=== PATIENT | female | born 1995 | race Caucasian/White ===

== ENCOUNTER 2017-02-23 03:19 | Observation (INO) | payer OTHER ==
[2017-02-23] MEDS ORDERED: TORAdol 30 mg Injection IV ONE (03:39)
[2017-02-23] MEDS ORDERED: Zofran 4 MG/2 ML VIAL IV ONE ×2 (03:39→16:56)
[2017-02-23] MEDS ORDERED: Pepcid 20 MG VIAL IV ONE ×2 (03:41→03:48)
--- NOTE | 2017-02-23 03:46 | ERPHSYRPT ---
- History of Present Illness Time Seen by Provider: 02/23/17 03:30 Historian: patient Exam Limitations: no limitations Patient Subjective Stated Complaint: pt C/O abd pain x 6 days with vomiting. Denies diarrhea. Hx of gallstone which she did not want to have surgery for. Pt tried herbal remedies at home. Pt ate greasy food last sunday which started this episode. Has been eating but unable to keep food down. Vomiting 2-3 times per day. Able to fluids down. Twisting pain that radiates into chest and makes her feel like she is going to vomit. Rates pain 10/10. Pt sts sometimes she has noticed bright red blood in vomit. C/O ABD bloating. Last BM either sunday or sunday. Triage Nursing Assessment: Pt alert, oriented, answers all questions appropriately. Skin pale, warm, dry. Resps non-labored. Pt ambulatory to tx room , steady gait noted. Pt appears uncomfortable. Diffusely tender abd, + bowel sounds, left CVA tenderness. Physician History: Pt has been c/o recurrent RUQ abdominal pain for about one year. She had CT abdomen few months ago, diagnosed with gallstones, did not have Ultrasound. She states, the pain started about 6 days ago, radiates to her back, vomited once tonight, denies fever, chills, diarrhea, vomiting blood or coffee ground material. Timing/Duration: day(s) (6) Activities at Onset: none Quality: cramping Abdominal Pain Onset Location: RUQ Pain Radiation: back Severity of Pain-Max: severe Severity of Pain-Current: severe Modifying Factors: Improves With: nothing Associated Symptoms: nausea, vomiting Previous symptoms: same symptoms as today, other (recurrent pain for one year,) Allergies/Adverse Reactions: No Known Drug Allergies Allergy (Unverified 02/23/17 03:36) Home Medications: Hydrocodone/Acetaminophen [Hydrocodone-Acetamin 5-325 mg] 1 each PO Q6H [History] Norgestimate-Ethinyl Estradiol [Tri-Estarylla] 1 each PO DAILY 02/23/17 [History ] Promethazine HCl 0 mg PO Q6HPRN PRN 02/23/17 [History] Immunizations Up to Date: Yes - Review of Systems Constitutional: No Symptoms Abdominal/Gastrointestinal: Abdominal Pain, Nausea, Vomiting All Other Systems: Reviewed and Negative - Past Medical History Pertinent Past Medical History: Yes Other Medical History: pre-diabetes, gallstones - Past Surgical History Past Surgical History: No - Social History Smoking Status: Never smoker Exposure to second hand smoke: No Drug Use: none Patient Lives Alone: No - Female History Hx Last Menstrual Period: 02/05/17 Hx Now: No - Nursing Vital Signs Nursing Vital Signs: Initial Vital Signs Temperature 97.3 F 02/23/17 03:23 Pulse Rate 80 02/23/17 03:23 Respiratory Rate 16 02/23/17 03:23 Blood Pressure 150/80 02/23/17 03:23 O2 Sat by Pulse Oximetry 99 02/23/17 03:23 Pain Scale Pain Intensity 3 - Physical Exam General Appearance: no apparent distress Eye Exam: eyes nml inspection Ears, Nose, Throat Exam: normal ENT inspection Neck Exam: normal inspection, non-tender Respiratory Exam: normal breath sounds, chest tenderness, lungs clear Cardiovascular Exam: regular rate/rhythm, normal heart sounds, normal peripheral pulses, No murmur Gastrointestinal/Abdomen Exam: soft, normal bowel sounds, tenderness (diffuse, more severe in RUQ, no flank tenderness.), No distention, No mass, No guarding, No hernia, No organomegaly Back Exam: normal inspection, No CVA tenderness Extremity Exam: normal inspection Neurologic Exam: alert, oriented x 3, cooperative, normal mood/affect Skin Exam: normal color, warm, dry Lymphatic Exam: No adenopathy SpO2: 99 Oxygen Delivery: Room Air - CT Exams Abdomen/Pelvis CT Interpretation: Other (noncalcified gallstones/sludge, gallbladder distension with mild wall edema, may represent acute cholecistitis) Ordered Tests: Active Orders 24 hr Category Date Time Status IV Insertion STAT Care 02/23/17 03:39 Active NPO (ED) STAT Care 02/23/17 03:39 Active ABDOMEN AND PELVIS W CONTRAST [CT] Stat Exams 02/23/17 03:39 Taken AMYLASE Stat Lab 02/23/17 03:45 Completed CBC W DIFF Stat Lab 02/23/17 03:45 Completed CMP Stat Lab 02/23/17 03:45 Completed HCG,QUALITATIVE URINE Stat Lab 02/23/17 03:45 Completed LIPASE Stat Lab 02/23/17 03:45 Completed Lactic Acid Stat Lab 02/23/17 03:39 Completed Medication Summary Discontinued Medications Generic Name Dose Route Start Last Admin Trade Name Nitin PRN Reason Stop Dose Admin Famotidine 20 mg 02/23/17 03:41 02/23/17 03:51 Pepcid 20 Mg Vial IV 02/23/17 03:42 20 mg STAT ONE Administration Famotidine Confirm 02/23/17 03:48 Pepcid 20 Mg Vial Administered 02/23/17 03:49 Dose 20 mg IV .STK-MED ONE Piperacillin Sod/Tazobactam Sod 3.375 gm in 100 mls @ 200 mls/hr 02/23/17 05: 18 02/23/17 05:34 Zosyn 3.375gm/100 Ml D5w IV 02/23/17 05:47 200 mls/hr STAT STA Administration Piperacillin Sod/Tazobactam Sod Confirm 02/23/17 05:29 Zosyn 3.375gm/100 Ml D5w Administered 02/23/17 05:30 Dose 3.375 gm in 100 mls @ ud IV .STK-MED ONE Ketorolac Tromethamine 30 mg 02/23/17 03:39 02/23/17 03:52 Toradol 30 Mg Injection IV 02/23/17 03:40 30 mg STAT ONE Administration Ketorolac Tromethamine Confirm 02/23/17 03:48 Toradol 30 Mg Injection Administered 02/23/17 03:49 Dose 30 mg .ROUTE .STK-MED ONE Ondansetron HCl 4 mg 02/23/17 03:39 02/23/17 03:52 Zofran 4 Mg/2 Ml Vial IV 02/23/17 03:40 4 mg STAT ONE Administration Ondansetron HCl Confirm 02/23/17 03:48 Zofran 4 Mg/2 Ml Vial Administered 02/23/17 03:49 Dose 4 mg .ROUTE .STK-MED ONE Lab/Rad Data: Laboratory Result Diagrams 02/23/17 03:45 02/23/17 03:45 Laboratory Results 02/23/17 02/23/17 02/23/17 Range/Units 03:45 03:45 03:45 WBC 7.5 (4.0-10.5) K/mm3 RBC 4.31 (4.1-5.4) M/mm3 Hgb 12.5 (12.0-16.0) gm/dl Hct 37.8 (35-47) % MCV 87.7 (78-100) fl MCH 29.0 (26-32) pg MCHC 33.1 (32-36) g/dl RDW 12.1 (11.5-14.0) % Plt Count 283 (150-450) K/mm3 MPV 9.8 H (6-9.5) fl Gran % 72.0 H (36.0-66.0) % Lymphocytes % 17.2 L (24.0-44.0) % Monocytes % 8.9 (0.0-12.0) % Eosinophils % 1.6 (0.00-5.0) % Basophils % 0.3 (0.0-0.4) % Basophils # 0.02 (0-0.4) Sodium 138 (136-145) mEq/L Potassium 3.7 (3.5-5.1) mEq/L Chloride 101 (98-107) mEq/L Carbon Dioxide 28.6 (21-32) mEq/L Anion Gap 11.7 (5-15) MEQ/L BUN 9 (9-20) mg/dL Creatinine 0.76 (0.55-1.30) mg/dl Estimated GFR > 60 ML/MIN Glucose 130 H (70-110) MG/DL Lactic Acid (0.4-2.0) Calcium 8.8 (8.5-10.1) mg/dL Total Bilirubin 0.60 (0.2-1.0) mg/dL AST 21 (15-37) U/L ALT 25 (12-78) U/L Alkaline Phosphatase 37 L (46-116) U/L Serum Total Protein 7.3 (6.4-8.2) gm/dL Albumin 3.9 (3.4-5.0) g/dL Amylase 71 (25-115) U/L Lipase 109 (73-393) U/L Urine HCG, Qual NEGATIVE (Negative) 02/23/17 Range/Units 03:39 WBC (4.0-10.5) K/mm3 RBC (4.1-5.4) M/mm3 Hgb (12.0-16.0) gm/dl Hct (35-47) % MCV (78-100) fl MCH (26-32) pg MCHC (32-36) g/dl RDW (11.5-14.0) % Plt Count (150-450) K/mm3 MPV (6-9.5) fl Gran % (36.0-66.0) % Lymphocytes % (24.0-44.0) % Monocytes % (0.0-12.0) % Eosinophils % (0.00-5.0) % Basophils % (0.0-0.4) % Basophils # (0-0.4) Sodium (136-145) mEq/L Potassium (3.5-5.1) mEq/L Chloride (98-107) mEq/L Carbon Dioxide (21-32) mEq/L Anion Gap (5-15) MEQ/L BUN (9-20) mg/dL Creatinine (0.55-1.30) mg/dl Estimated GFR ML/MIN Glucose (70-110) MG/DL Lactic Acid 0.9 (0.4-2.0) Calcium (8.5-10.1) mg/dL Total Bilirubin (0.2-1.0) mg/dL AST (15-37) U/L ALT (12-78) U/L Alkaline Phosphatase (46-116) U/L Serum Total Protein (6.4-8.2) gm/dL Albumin (3.4-5.0) g/dL Amylase (25-115) U/L Lipase (73-393) U/L Urine HCG, Qual (Negative) - Progress Progress: improved Progress Note: 02/23/17 06:20 Pt has remained afebrile, pain improved, she states, she feels much better. I called Dr Jaciel Coburn, discussed our results, he agreed to see her today. I also called Dr Yoli Lin, discussed the results and patients current condition, she agreed to admit patient to medical surgical bed. Pt and her informed , they agreed. 02/23/17 06:23 02/23/17 06:23 Discussed with : Rekha Taveras - Departure Time of Disposition: 06:23 Departure Disposition: In-patient Admission Clinical Impression: Acute cholecystitis due to biliary calculus Condition: Stable Critical Care Time: No Referrals: LORNA TEMPLE MD [Primary Care Provider] -
[2017-02-23] MEDS ORDERED: TORAdol 30 mg Injection ONE (03:48)
[2017-02-23] MEDS ORDERED: Zofran 4 MG/2 ML VIAL ONE ×2 (03:48→15:59)
[2017-02-23 03:50] LABS: BASOPHIL % 0.3 % (0.0-0.4); Eosinophil % 1.6 % (0.00-5.0); Lymphocytes % 17.2 % (24.0-44.0); Mean Cell Volume 87.7 fl (78-100); Mean Platelet Volume 9.8 fl (6-9.5); Monocytes % 8.9 % (0.0-12.0); Platelet Count 283 K/mm3 (150-450); Red Blood Count 4.31 M/mm3 (4.1-5.4); Red Cell Distribution Width 12.1 % (11.5-14.0); White Blood Count 7.5 K/mm3 (4.0-10.5)
[2017-02-23 04:12] LABS: ALBUMIN 3.9 g/dL (3.4-5.0); ALKALINE PHOSPHATASE 37 U/L (46-116); ANION GAP 11.7 MEQ/L (5-15); BLOOD UREA NITROGEN 9 mg/dL (9-20); CHLORIDE 101 mEq/L (98-107); Carbon Dioxide 28.6 mEq/L (21-32); Glucose 130 MG/DL (70-110); LIPASE 109 U/L (73-393); Potassium 3.7 mEq/L (3.5-5.1); SGOT/AST 21 U/L (15-37); SGPT/ALT 25 U/L (12-78); SODIUM 138 mEq/L (136-145); Total Protein 7.3 gm/dL (6.4-8.2)
[2017-02-23] MEDS ORDERED: Zosyn 3.375GM/100 Ml D5W 3.375 GM/100 ML IVPB IV STA (05:18)
[2017-02-23] MEDS ORDERED: Zosyn 3.375GM/100 Ml D5W 3.375 GM/100 ML IVPB IV ONE (05:29)
[2017-02-23] MEDS ORDERED: Sodium Chloride 0.9% 1000 ML 1,000 ML IV SCH (07:12)
[2017-02-23] MEDS ORDERED: MEFOXIN 2 GM PREMIX** 2 GM/50 ML ML IV SCH (09:00)
[2017-02-23] MEDS: Lactated Ringers 1,000 ML IV SCH ×2 (09:15→22:55)
--- NOTE | 2017-02-23 09:28 | XRAY ---
Indication: Right upper quadrant pain and nausea. Multiple contiguous axial images obtained through the abdomen and pelvis using 80 cc Isovue 370 contrast only. Comparison: None. Lung bases demonstrate lingular calcified granuloma. No infiltrate or effusion. Heart is not enlarged. Noncontrasted stomach and bowel loops appear nonobstructed. Mild diffuse scattered colonic fecal debris greatest in the ascending and transverse colon. Normal appendix. Tiny cul-de-sac fluid presumed from rupture/leaking cyst. No walled off fluid collection or free air. Gallbladder is moderately distended with mild wall thickening. No radiopaque gallstones or abnormal biliary distention. Tiny hepatic/splenic calcified granulomas. 3 cm left renal parapelvic cyst. Remaining liver, pancreas, spleen, adrenal glands, kidneys, ureters, bladder, uterus, and aorta appear unremarkable. Small subcentimeter periaortic lymph nodes, none pathologically enlarged. Osseous structures intact. Impression: 1. Distended gallbladder with mild wall thickening. Cholecystitis is a primary concern. Gallbladder ultrasound may yield further information. 2. Fecal stasis without obstruction. 3. Tiny cul-de-sac fluid presumed from ruptured/leaking cyst. 4. Left renal cyst. Comment: Preliminary interpretation was made by C. No critical discrepancy. CT DI 20.69
[2017-02-23] MEDS: MORPHINE SULFATE 4 MG INJ IV PRN (10:28)
[2017-02-23] MEDS: Zofran 4 MG/2 ML VIAL IV PRN ×2 (10:28→20:48)
[2017-02-23] MEDS ORDERED: Zosyn 3.375GM/100 Ml D5W 3.375 GM/100 ML IVPB IV SCH (12:00)
[2017-02-23] MEDS ORDERED: Lactated Ringers 1,000 ML IV ONE (12:43)
[2017-02-23] MEDS ORDERED: Sensorcaine 0.25% 10 ML ONE (12:43)
--- NOTE | 2017-02-23 13:20 | XRAY ---
Indication: Right upper quadrant pain. Abnormal gallbladder on same-day CT. Two-dimensional right upper quadrant abdominal sonogram performed. Comparison: None Gallbladder normally distended with a few gallstones. Largest measures 2.1 cm in the neck of the gallbladder. Borderline gallbladder wall thickening measuring 3.1 mm. No pericholecystic fluid. Common bile duct measures 4.1 mm. No intrahepatic biliary distention. Pancreas not well seen due to overlying bowel gas. Remaining visualized liver and right kidney appear sonographically unremarkable. Right kidney measures 11.5 x 4.7 x 5.5 cm. No ascites. Impression: Gallstones, largest in the neck of the gallbladder with gallbladder wall thickening. Rule out cholecystitis. Pancreas not seen.
[2017-02-23] MEDS ORDERED: TYLENOL 325 MG PO PRN (16:49)
[2017-02-23] MEDS ORDERED: FEVERALL 650 MG RC PRN (16:49)
[2017-02-23] MEDS ORDERED: Zemuron 100 MG/10 ML IJ ONE (16:56)
[2017-02-23] MEDS ORDERED: TORAdol 30 mg Injection IJ ONE (16:56)
[2017-02-23] MEDS ORDERED: DIPRIVAN 200 MG/20 ML IV ONE (16:56)
[2017-02-23] MEDS ORDERED: Quelicin Fliptop 200 MG/10 ML IJ ONE (16:56)
[2017-02-23] MEDS ORDERED: BRIDION 200MG/2ML IV ONE (16:56)
[2017-02-23] MEDS ORDERED: Decadron 4 MG INJ IV ONE (16:56)
--- NOTE | 2017-02-23 17:05 | CONS ---
CONSULT DATE: 02/23/17 HISTORY OF PRESENT ILLNESS: This is a 21 y/o female who has been having on and off abdominal pain for the past year. She states on 11/22/16 she had a severe attack of similar pain in her right side. She went to [place]. She was found to have gallbladder disease. She did not want to have surgery at that time. She wanted to try conservative management and so she elected to not have surgery. She then had another attack approximately 1 week ago on Sunday and then over the past week, she has had intermittent N/V, significant pain. The pain is not going away. She continued to have pain today. She presented to the Emergency Room at [facility]. The patient states that she has also had some blood in her emesis. She says that she has had this since childhood. She would have a very small amount of spotty blood in her emesis. However, as this pain worsened with her gallbladder, she has noticed a little more blood in the emesis than before with some mucus. She also states that she has been taking at least 4 ibuprofen a day. She is taking a lot of extra strength Tylenol. She also is taking some hydrocodone which she had left over from November and she says she has taken all these medications without any significant improvement of her pain. PAST MEDICAL HISTORY: Prediabetic, scoliosis. PAST SURGICAL HISTORY: None. HOME MEDICATIONS: Herbal supplements, control, and recently she has been taking hydrocodone, ibuprofen, and Tylenol. ALLERGIES: NKDA. FAMILY HISTORY: No bleeding or anesthesia issues. Patient's family does report possible esophagus or stomach cancer in the family. SOCIAL HISTORY: Positive occasional alcohol use. No tobacco use. PHYSICAL EXAMINATION: GENERAL: No acute distress. ABDOMEN: Soft. Tender to palpation upper abdomen, more on the right. No rebound. No guarding. Definitely appears consistent with cholecystitis with the right upper quadrant pain. Patient is nondistended. PULMONARY: Nonlabored. CVS: Regular rate and rhythm. EXTREMITIES: Normal. LABORATORY DATA: Laboratory studies are reviewed including CBC, BMP, hepatic function panel, amylase, lipase, and test. The test is negative. Her liver function tests and bilirubin are normal. Her creatinine is normal. She does appear to have acute cholecystitis. She did get a CT scan and this showed concerns with possible acute cholecystitis with gallbladder thickening, a small amount of free fluid in the pelvis. She also incidentally has a left perirenal cyst and they recommended US. The US was urgently obtained. She does have thickening of the gallbladder on US. She does have a quite large stone which appears to be in the neck of the gallbladder causing the issue with gallbladder wall thickening and definitely concerns for acute cholecystitis. ASSESSMENT: This is a 21 y/o female with a couple of concerning issues: 1. SHE DOES HAVE ACUTE CHOLECYSTITIS. She is currently on IV antibiotics. She is NPO. She absolutely does need a cholecystectomy based on the increasing severity of her symptoms, her CT scan and US findings. I have discussed with her all the risks, benefits, and alternatives regarding laparoscopic/possible open cholecystectomy. She understands. She would like to proceed. We will plan for surgery today. 2. SHE DOES APPEAR TO HAVE SOME POSSIBLE ULCER DISEASE. She has been having some bleeding throughout her entire life when she vomits. However, recently, she has had a little more blood in her emesis and I think it is absolutely necessary that at some point once she has healed from her gallbladder issue, we do an EGD and I also have written her for Protonix so that after her surgery, she can start getting treated with proton pump inhibitor therapy. I discussed this with her as well as with her family and so after the gallbladder surgery, she will follow-up with me and then pending how her recovery goes for the gallbladder, we will plan to schedule an EGD as an outpatient once her acute gallbladder issue has resolved. 3. The third issue is the incidental renal cyst. This I discussed with the patient that we will leave up to her medical doctor to follow and should the medical doctor think that at some point she needs to see a urologist for this, they may do so. This appears to be benign. PLAN: Final plan is surgery today, possible endoscopy once patient has healed from surgery as an outpatient, and then she will also follow-up with her medical physician as well.
[2017-02-23] MEDS ORDERED: Versed 2 MG/2 ML Injection IV ONE (17:22)
[2017-02-23] MEDS ORDERED: SUBLIMAZE 250 MCG/5 ML IJ ONE (17:22)
[2017-02-23] MEDS: Protonix 40MG Tablet PO SCH (17:25)
[2017-02-23] MEDS: NORCO 5/325 MG PO PRN (17:25)
--- NOTE | 2017-02-23 17:25 | OP ---
SURGERY DATE: 02/23/17 SURGERY TIME: PREOPERATIVE DIAGNOSIS: 1. ACUTE CHOLECYSTITIS. POSTOPERATIVE DIAGNOSIS: 1. ACUTE CHOLECYSTITIS WITH CHOLELITHIASIS. PROCEDURE: 1. Laparoscopic cholecystectomy. SURGEON: Agnes Coburn M.D. ANESTHESIA: General. ESTIMATED BLOOD LOSS: Less than 10 cc. COMPLICATIONS: None. SPECIMENS: 1. Gallbladder. 2. Free pelvic peritoneal fluid sent for cytology and microbiology. PROCEDURE DETAILS: This is a 21 y/o female who presents with acute cholecystitis and cholelithiasis. All risks, benefits, and alternatives regarding laparoscopic/possible open cholecystectomy have been discussed with the patient. She understands, agrees, and would like to proceed with surgery today. She has been NPO. Please see my consultation note for the other incidental findings on CT scan which we will be following as an outpatient as well as with her gallbladder issues. The patient was then brought back to the surgical suite. Anesthesia was induced. She was prepped and draped in the usual sterile fashion. Complete time-out performed. An OG tube was inserted. The stomach was desufflated. An incision was made in the left upper quadrant. Veress needle was used to access the abdomen. We had a good water drop test. We had an initial low insufflatory pressure of 6. The abdomen was then evenly and easily insufflated. 5 mm optical port placed at the same site under direct visualization. No obvious injuries identified. An 11 port was then placed slightly superior to the umbilicus and then two 5 ports in the right upper quadrant, all under visualization. The gallbladder was identified. It was distended. There was thickened omentum covering this as well. We did take a quick survey. The patient did have some free pelvis peritoneal fluid. This was clear. This looked quite friendly. I do not know what the fluid is coming from. It may just be physiologic. However, because it was incidentally noticed on the CT scan as well, I did suction free all of this fluid and I sent it for cytology as well as for microbiology. Again, it looked very clear. It looked very friendly and I did not see any obvious gross issues on the external surfaces that were visualized during the procedure of any concern except for the inflammation of the gallbladder. We then had to carefully take down the omentum off of the gallbladder. It was adherent. It did appear to be acute cholecystitis. The gallbladder was pretty distended and definitely was thickened consistent with the findings on the US. We then grasped the gallbladder and retracted this cephalad. We carefully dissected free the cystic duct and cystic artery. The patient did have a very short cystic duct. She did have a stone impacted in the neck of the gallbladder. We were able to gently milk this back to expose the short cystic duct and then we completely cleared the gallbladder for a few cm up the gallbladder. The cystic artery was very small. It did appear to branch into multiple very tiny branches. We were able to isolate this and we isolated this clear up approximately 3-4 cm up onto the wall of the gallbladder. Once we had isolated this, we had completely cleared our liver plate. There were no other ductal structures, no other arterial structures. We definitely had a critical view. There was only 1 structure entering the gallbladder which was the duct more inferiorly and then there was only 1 other structure entering the gallbladder up higher and this was the cystic artery. We then upsized our left upper quadrant trocar to a 12 port since this cystic duct was so short. We then took off all tension off of the gallbladder so that we were not tenting the duct. We then placed the stapler immediately on the cystic duct. I took care to be completely off the common duct by a few mm and then we stapled here completely transecting the cystic duct and our staple line looked excellent and hemostatic and intact and the common duct looked excellent. There was no issue here. We then clipped the cystic artery and then proceeded to take the gallbladder off the liver bed with Bovie cautery. Before completely removing the gallbladder, we reinspected our staple line as well as our clips. Everything looked excellent. I did have a very small posterior branch which I also clipped and everything looked wonderful here. The arteries were quite small. The liver bed was hemostatic. We then placed the gallbladder into a laparoscopic bag, completely removed it from the abdomen. There was no spillage of bile or any contents throughout the abdomen at all. The gallbladder was extracted through the left upper quadrant site and then sent to pathology. We closed this site with 0 Vicryl laparoscopic suture, the umbilical site with 0 Vicryl laparoscopic suture, and then we reinspected clips, staple line, and gallbladder bed. Everything looked excellent. No issues. Abdomen was then desufflated. 5 mm ports, the ones remaining, were then removed and then we irrigated and closed with buried 4-0 Monocryl. Steri-strips and sterile dressing. The patient tolerated the procedure very well. There were no immediate complications. I have discussed all the results regarding surgery as well as the incidental findings on her CT scan with her family. We will plan to advance her diet today, check her labs tomorrow, and if she does well, chance of going home tomorrow with outpatient follow-up with me to schedule her EGD once her acute gallbladder issues have completely resolved and then she will also see her PCP in a couple of weeks as well.
[2017-02-23] MEDS: MEFOXIN 1 Gm/ D5W 50 Ml** 1 G/50 ML ML IV SCH (17:26)
[2017-02-24] MEDS: NORCO 5/325 MG PO PRN ×4 (00:27→20:56)
[2017-02-24] MEDS: MEFOXIN 1 Gm/ D5W 50 Ml** 1 G/50 ML ML IV SCH ×3 (00:28→12:00)
[2017-02-24] MEDS: MORPHINE SULFATE 4 MG INJ IV PRN ×2 (03:37→09:01)
[2017-02-24 06:23] LABS: Mean Cell Volume 87.7 fl (78-100); Mean Corpuscular Hemoglobin 28.6 pg (26-32); Mean Platelet Volume 10.4 fl (6-9.5); Platelet Count 282 K/mm3 (150-450); Red Blood Count 3.98 M/mm3 (4.1-5.4); White Blood Count 9.4 K/mm3 (4.0-10.5)
[2017-02-24 06:56] LABS: ALBUMIN 3.2 g/dL (3.4-5.0); ALKALINE PHOSPHATASE 31 U/L (46-116); ANION GAP 11.6 MEQ/L (5-15); BLOOD UREA NITROGEN 4 mg/dL (9-20); CHLORIDE 106 mEq/L (98-107); Carbon Dioxide 24.7 mEq/L (21-32); Direct Bilirubin 0.12 MG/DL (0.0-0.2); Glucose 150 MG/DL (70-110); Potassium 3.7 mEq/L (3.5-5.1); SGOT/AST 29 U/L (15-37); SGPT/ALT 37 U/L (12-78); SODIUM 139 mEq/L (136-145); Total Protein 6.7 gm/dL (6.4-8.2)
[2017-02-24] MEDS: Protonix 40MG Tablet PO SCH (09:00)
[2017-02-24] MEDS: Lactated Ringers 1,000 ML IV SCH ×2 (09:00→20:50)
[2017-02-24] MEDS: ENOXAPARIN SODIUM SQ SCH (09:01)
[2017-02-24] MEDS: Zofran 4 MG/2 ML VIAL IV PRN (13:39)
[2017-02-25] MEDS: Zofran 4 MG/2 ML VIAL IV PRN ×2 (02:20→10:02)
[2017-02-25] MEDS: NORCO 5/325 MG PO PRN ×3 (02:28→13:59)
[2017-02-25 05:40] LABS: Mean Cell Volume 90.9 fl (78-100); Mean Platelet Volume 10.4 fl (6-9.5); Platelet Count 222 K/mm3 (150-450); Red Blood Count 3.42 M/mm3 (4.1-5.4); Red Cell Distribution Width 12.4 % (11.5-14.0)
[2017-02-25 05:49] LABS: Mean Corpuscular Hemoglobin 28.6 pg (26-32)
[2017-02-25 06:03] LABS: ALBUMIN 2.7 g/dL (3.4-5.0); ALKALINE PHOSPHATASE 25 U/L (46-116); ANION GAP 6.9 MEQ/L (5-15); BLOOD UREA NITROGEN 4 mg/dL (9-20); CHLORIDE 109 mEq/L (98-107); Carbon Dioxide 28.8 mEq/L (21-32); Glucose 91 MG/DL (70-110); Potassium 3.7 mEq/L (3.5-5.1); SGOT/AST 15 U/L (15-37); SGPT/ALT 29 U/L (12-78); SODIUM 141 mEq/L (136-145); Total Protein 5.8 gm/dL (6.4-8.2)
[2017-02-25] MEDS: Lactated Ringers 1,000 ML IV SCH (06:38)
[2017-02-25 06:50] VITALS: O2SAT 98
[2017-02-25] MEDS: Protonix 40MG Tablet PO SCH (09:55)
[2017-02-25] MEDS: ENOXAPARIN SODIUM SQ SCH (09:55)
[2017-02-25 11:23] VITALS: BP 117/58; PULSE 79
--- NOTE | 2017-02-26 10:02 | HP ---
HISTORY OF PRESENT ILLNESS: At the time of my rounds this afternoon the patient was in surgery. The patient was evaluated this evening after she had just returned from surgery. Triny Carroll is a 21 year old woman with past medical history of gallstones and prediabetes. She was reportedly diagnosed with that back in November 2016. She presented to the emergency room earlier this morning with symptoms of abdominal pain, nausea and vomiting which had started six days ago after she had greasy food. There was no reported history of fever. The patient was unable to keep any food down. She also had stated that she occasionally noticed bright red blood in bowel movement. She complained of abdominal bloating. The patient's last bowel movement was two or three days ago. Upon initial evaluation in the emergency room the patient was noted to have blood pressure of 150/80, heart rate 80, respiratory rate 16, temperature 97.3F. She underwent CT scan of abdomen and pelvis which showed distended gallbladder with mild wall thickening, questionable cholecystitis. Fecal stasis without obstruction, had fluid from leaking left renal cyst. She had been placed on IV fluids, IV analgesics. Surgery was contacted. The patient also underwent aspiration of fluid from left renal cyst. During her course in the emergency room she was treated with Pepcid 20 mg IV x1, Rocephin 3.375 gm IV x1, Toradol 30 mg IV x1, Zofran 4 mg IV x1. Surgery was contacted from the emergency room and the patient was to have surgery today. Eventually during her course the patient did undergo gallbladder ultrasound which showed gallstones in the neck of the gallbladder largest measuring 2.1 cm, borderline gallbladder wall thickening measuring 3.1 mm. No pericholecystic fluid. Common bile duct measuring 4.1 mm. No intrahepatic biliary distention. Pancreas not seen. She was evaluated by surgery and eventually underwent laparoscopic cholecystectomy. Post-procedure, she was transferred back to the floor. At the time of this evaluation earlier this evening the patient had just returned from surgery. She complained of generalized abdominal pain. She complained of nausea. PAST MEDICAL HISTORY: As noted above. PAST SURGICAL HISTORY: Noncontributory to current admission. [employer] HISTORY: Last menstrual period was 02/05/2017. ALLERGIES: NKDA. CURRENT MEDICATIONS: Reviewed. FAMILY HISTORY: Noncontributory to current admission. SOCIAL HISTORY: The patient lives at home. No history of smoking. REVIEW OF SYSTEMS: Denies headache or dizziness. Denies fever. Denies chest pain, shortness of breath or cough. Complains of right upper abdominal pain especially worse on right, nausea and vomiting prior to presentation. The patient also occasionally reported seeing blood in her vomitus. Denied constipation. No history of constipation or diarrhea. Denies urinary complaints. PHYSICAL EXAMINATION: A young woman lying comfortably in bed, not in acute distress. VITAL SIGNS: Blood pressure 108/63, heart rate 70, respiratory rate 16, temperature 98.9F. Oxygen saturation 99% on room air. HEENT: Pallor is present. No icterus is noted. NECK: No JVD is present. CVS: S1, S2 present. RESPIRATORY: Breath sounds are bilaterally diminished and clear to auscultation. ABDOMEN: Soft, dressing present, generalized tenderness present. NEURO: She is alert, oriented x3. EXTREMITIES: No edema on bilateral lower extremities. LABORATORY DATA AND TESTS: Labs from admission showed unremarkable CBC. CMP was essentially unremarkable. Urine HCG was negative. Lipase within normal limits. Ultrasound of gallbladder as noted above. ASSESSMENT: A 22 year old woman with impression: 1) Abdominal pain. 2) Acute cholecystitis status post laparoscopic cholecystectomy. PLAN: The patient is admitted for further monitoring and management. She evaluated by surgery and underwent surgery as noted. Postoperative management per surgery recommendations. Continue on IV fluids, broad spectrum IV antibiotics. Continue IV analgesics and antiemetic. The patient had just been started on clear liquid diet per surgery. Will continue to monitor closely. The plan was discussed with patient and family. They seem to be in understanding and agreement.
--- NOTE | 2017-02-26 10:36 | DS ---
HOSPITAL COURSE: The patient was hospitalized with abdominal pain and underwent cholecystectomy by Dr. Coburn. The patient has done reasonably well, did pass gas. No nausea. No vomiting. She has been feeling a little tired, slight tenderness in the area of the surgery. She voided well. Hemodynamically stable. Lab tests stable. The patient is advised to be discharged with outpatient follow up. Follow up with Dr. Coburn in the next couple of days for outpatient. Ambulated and clear liquids to advance to soft diet advised and any further directions as per the surgeon.
== END 2017-02-25 14:55 | disposition home or self-care (01) ==
LOC: ED 03:19 → INTOOBSV 07:07 → MED SURG 07:07
PROVIDERS: ADMIT General Practice; ATTEND General Practice
PROC: 0FT44ZZ Resection of Gallbladder, Percutaneous Endoscopic Approach (ICD-10-PCS; principal; 2017-02-23)
DX: K80.00 Calculus of gallbladder with acute cholecystitis without obstruction (principal)
CPT/HCPCS: 00790; 36000; 36415; 74177; 76705; 80048; 80053; 80076; 82150; 83605; 83690; 84703; 85025; 85027; 87070; 94760; 96374; 96375; 99285; G0378; J0330; J0694; J1100; J1650; J1885; J2250; J2270; J2405; J2543; J2704; J3010; A9270-GY